=== PATIENT | male | born 1960 | race Caucasian/White ===

== ENCOUNTER → 2016-07-10 | Outpatient (CLI) | payer BC ==
[~2016-07-10] MED LIST: ASPI1TAB83 PO; ATOR10TA88 PO; LISI-461 PO; METF1000 PO
[2016-07-10 12:35] LABS: ESTIMATED AVERAGE GLUCOSE 143 mg/dl; HA1C FLAG Normal (Normal)
== END | disposition home or self-care (01) ==
LOC: C.LABBC 07:31
PROVIDERS: ATTEND Internal Medicine Endocrinology, Diabetes & Metabolism
DX: E11.9 Type 2 diabetes mellitus without complications (principal)

== ENCOUNTER → 2016-07-17 | Outpatient (CLI) | payer BC | END | disposition home or self-care (01) | LOC: C.LABBC 15:08 | PROVIDERS: ATTEND Internal Medicine | DX: R10.9 Unspecified abdominal pain (principal) ==

== ENCOUNTER → 2016-09-15 | Outpatient (CLI) | payer BC ==
[~2016-09-15] MED LIST changes: +ATOR10TA82 PO; -ATOR10TA88 PO
[2016-09-15 13:29] LABS: URINE APPEARANCE CLEAR (CLEAR); URINE BILIRUBIN NEG (NEG); URINE COLOR YELLOW; URINE EPITHELIAL CELL AUTO 0-5 /lpf (0-5); URINE NITRITE NEG (NEG); URINE SPECIFIC GRAVITY 1.022 (1.000-1.030); UROBILINOGEN NEG (NEG); ZZUR CULT IF INDIC CLEAN CATCH NO
[2016-09-15 13:30] LABS: MANUAL MICROSCOPIC REQUIRED? NO; REVIEW REQ? NO
[2016-09-15 13:44] LABS: ALT/SGPT 46 U/L (12-78); BLOOD UREA NITROGEN 15 mg/dl (7-18); BUN/CREATININE RATIO 18.5 (10-20); CARBON DIOXIDE 26 mmol/L (21-32); CHLORIDE 107 mmol/L (98-107); CHOLESTEROL 157 mg/dl (0-200); GLUCOSE 108 mg/dl (70-99); SODIUM 141 mmol/L (136-145); TRIGLYCERIDES 75 mg/dl (0-150); VERY LOW DENSITY LIPOPROT CALC 15 mg/dl
[2016-09-15 13:47] LABS: CALCIUM 9.1 mg/dl (8.5-10.1)
[2016-09-15 13:49] LABS: ALB/GLOB RATIO 1.2 (0.9-2); ALKALINE PHOSPHATASE 68 U/L (45-117); AST/SGOT 27 U/L (15-37); CHOLESTEROL/HDL RATIO 3.4; HDL CHOLESTEROL 46 mg/dl; LDL CHOLESTEROL CALCULATED 96 mg/dl; PROSTATE SPECIFIC ANTIGEN 0.573 ng/ml (0.000-4.000)
[2016-09-15 14:10] LABS: RATIO 6.5 mcg/mg (0-30.0)
== END | disposition home or self-care (01) ==
LOC: C.LABBC 11:50
PROVIDERS: ATTEND Internal Medicine
DX: E11.9 Type 2 diabetes mellitus without complications (principal); Z12.5 Encounter for screening for malignant neoplasm of prostate

== ENCOUNTER → 2017-08-06 | Outpatient (CLI) | payer OTHER ==
--- NOTE | 2017-08-06 08:55 | DIAGNOSTIC IMAGING REPORT ---
R EXTREMITY NONVASCULAR LIMITED CLINICAL HISTORY: 56 years-old Male presenting with M25.561 Right knee painRight popliteal [id number]. TECHNIQUE: Real-time grayscale Doppler ultrasound imaging of the right posterior knee was performed for a focused evaluation at the site of clinical concern. Color Doppler ultrasound imaging was also performed. COMPARISON: None. FINDINGS: Fluid noted deep and somewhat encircling the pelvis and sinus tendon complex along the medial posterior knee at the site of pain. No evidence of a popliteal cyst. No convincing evidence of a tendon tear. No large knee joint effusion. IMPRESSION: 1. Findings most consistent with pes anserinus bursitis. This would be better demonstrated with noncontrast MR of the knee if clinically indicated. Electronically signed by: Jared Nuno M.D. 08/06/2017 8:53 AM Dictated Date/Time: 08/06/2017 8:50 AM
== END | disposition home or self-care (01) ==
LOC: C.ULTR 07:57
PROVIDERS: ATTEND Internal Medicine
DX: M25.561 Pain in right knee (principal)